=== PATIENT | male | born 1950 | race Caucasian/White ===

== ENCOUNTER 2017-11-10 14:53 | Inpatient (IN) | payer OTHER ==
[~2017-11-10] VITALS: Ht 182.9 cm; Wt 89.5 kg
--- NOTE | ~2017-11-10 | HC ---
[facility] [place] [address] CONSULTATION Name: JADENYOBANY Room #: 406-P [facility] IN M.R.#: [id number] Admission: 11/10/17 Attend Phys: Rambo Chua MD Discharge: 11/14/17 Date of : 52 Report #: [id number] THIS REPORT FOR: //name// CC: Rambo Chua [facility] CHIEF COMPLAINT: Oliguria. HISTORY OF PRESENT ILLNESS: The patient is a 67-year-old gentleman who is being seen in the Emergency Room at the request of Dr. Chua for evaluation and management of possible urinary retention. Specifically, he lives at [facility] and was noted to have no urine output during the course of the day today. There is a history in the chart of kidney injury in the past. He is disoriented and does not answer questions, has a history of subarachnoid hemorrhage and traumatic brain injury. ALLERGIES: None reported. MEDICATIONS: Zoloft 25 mg daily, Depakote 750 mg at bedtime, Synthroid 75 mcg daily, lisinopril 20 mg daily, Zyprexa 2.5 mg at bedtime, Lipitor 40 mg at bedtime, vitamin D 1000 units daily, Catapres 0.1 mg b.i.d. ILLNESSES: Include subarachnoid hemorrhage, hypothyroidism, traumatic brain injury, elevated cholesterol, history of rhabdomyolysis, amnesia, altered mental status, and pulmonary nodule. REVIEW OF SYSTEMS: Not obtainable. SOCIAL HISTORY: Minimal tobacco use and no alcohol use. PHYSICAL EXAMINATION: GENERAL: He is awake, lying in bed. VITAL SIGNS: Blood pressure 116/53, pulse 82, respirations 18, temperature is 36.7. NEUROLOGIC: He is disoriented will not consent for exam. LABORATORY DATA: He is also combative. Nurses attempted to place a catheter, but could not keep him still. White count is 8.4000, hemoglobin 10.6, hematocrit 31.5, platelets 469,000. Sodium 141, potassium 4.1, chloride 107, CO2 of 26, BUN 46, creatinine is 1.5, GFR is 47, calcium is 11.0. AST 43, alkaline phosphatase 214, albumin 2.7. IMPRESSION: Dehydration/oliguria. PLAN: 1. Recommend hydration. 2. Monitor urine output and postvoid residuals. [address] [address] CONSULTATION Name: YOBANY STANLEY Room #: 406-P [facility] IN M.R.#: [id number] Admission: 11/10/17 Attend Phys: Rambo Chua MD Discharge: 11/14/17 Date of : 52 Report #: [id number] 3. He does not begin urinating and needs Yanez catheter placed and he will need to be taken to surgery. He has eaten and he has had food in the ER and has not been n.p.o. and at this point, I feel he deserves a period of hydration and observation before taking him to surgery given his mental status and the fact that he is in no way cooperative and would require emergency anesthesia techniques given the fact that he had food in the Emergency Room. I discussed this in detail with the ER physician, Dr. Rodriguez. <ELECTRONICALLY SIGNED> By: Mauricio Millan MD 11/21/17 [id number] Mauricio Millan MD /nt
[~2017-11-10 14:53] MED LIST: ADULT LOW DOSE81 MG; BACTRIM DS TAB1 EACH PO; LEVOTHYROXINE0.2 M1; NORCO 5-325 TA1 EACH PO; SIMVASTATIN5 MG; VITAMIN D 5050000 I1
[2017-11-10 14:54] VITALS: BP 121/61
[2017-11-10] MEDS ORDERED: ZOLOFT25 MG PO ×2 (15:23→15:25)
[2017-11-10] MEDS ORDERED: DEPAKOTE 250MG250 M1 PO (15:23)
[2017-11-10] MEDS ORDERED: SYNTHROID75 MCG PO (15:24)
[2017-11-10] MEDS ORDERED: ZYPREXA2.5 MG PO (15:24)
[2017-11-10] MEDS ORDERED: LISINOPRIL20 MG PO (15:24)
[2017-11-10] MEDS ORDERED: ATORVASTATIN CA40 MG PO (15:24)
[2017-11-10] MEDS ORDERED: VITAMIN D1000 UNI1 PO (15:25)
[2017-11-10] MEDS ORDERED: CATAPRES0.1 MG PO (15:25)
[2017-11-10 15:49] LABS: HEMATOCRIT 31.5 % (42.0-52.0); HEMOGLOBIN 10.6 gm/dL (14.0-18.0); MCH 29.7 pg (26.0-34.0); MCHC 33.7 g/dL (28.0-37.0); MCV 88.2 fL (80.0-100.0); RBC 3.57 mil/uL (4.50-6.00); RDW 13.5 % (10.5-14.5); WBC 8.4 thou/uL (4.0-11.0)
[2017-11-10 16:00] LABS: CREATININE 1.5 mg/dL (0.7-1.3); POTASSIUM 4.1 mmol/L (3.5-5.1)
[2017-11-10 16:06] LABS: ALBUMIN 2.7 g/dL (3.4-5.0); TOTAL BILIRUBIN 0.3 mg/dL (<0.1-1.0); TOTAL PROTEIN 6.8 g/dL (6.4-8.2)
[2017-11-10 17:32] VITALS: BP 116/53
[2017-11-10 19:12] VITALS: BP 99/55
[2017-11-10 19:23] VITALS: BP 116/57
[2017-11-10 19:58] VITALS: BP 126/71
[2017-11-11 16:00] VITALS: BP 118/61
[2017-11-11 20:06] VITALS: BP 164/77
[2017-11-12 00:24] LABS: URINE BILIRUBIN NEGATIVE (Negative); URINE BLOOD 2+ (Negative); URINE CLARITY CLEAR; URINE COLOR YELLOW; URINE GLUCOSE-RANDOM* NEGATIVE (Negative); URINE KETONES NEGATIVE (Negative); URINE NITRITE-REFLEX NEGATIVE (Negative); URINE PROTEIN (DIPSTICK) NEGATIVE (Negative); URINE SPECIFIC GRAVITY 1.025 (1.005-1.035); URINE UROBILINOGEN 0.2 E.U./dl (0.2-1.0)
[2017-11-12 00:28] LABS: URINE LEUKOCYTES-REFLEX 2+ (Negative)
[2017-11-12 00:36] LABS: CASTS None Seen /LPF (None Seen); MUCUS 0-3 Light strn/LPF (None Seen); SQUAMOUS 0-3 Few /LPF (0-3)
[2017-11-12 00:37] LABS: BACTERIA-REFLEX 1-9 Few /HPF (None Seen); CRYSTALS None Seen /LPF (None Seen); URINE RBC 0-2 Rare /HPF (0-2)
[2017-11-12 08:15] VITALS: BP 129/80
[2017-11-12 19:30] VITALS: BP 132/55
[2017-11-13 04:28] VITALS: BP 107/52
[2017-11-13 10:59] VITALS: BP 125/81
[2017-11-13] MEDS ORDERED: LEVAQUIN 500 M500 M1 PO (13:45)
[2017-11-13 16:18] VITALS: BP 141/82
[2017-11-13 19:43] VITALS: BP 95/59
[2017-11-14 04:32] VITALS: BP 97/60
[2017-11-14 08:00] VITALS: BP 135/79
[2017-11-14 08:41] VITALS: BP 135/79
== END 2017-11-14 12:45 | DRG 683 ==
LOC: ER 14:53 → EROBS 17:28 → 4N 17:28
PROVIDERS: Emergency Medicine
DX: N17.9 Acute kidney failure, unspecified (principal); E44.1 Mild protein-calorie malnutrition; N39.0 Urinary tract infection, site not specified; N41.9 Inflammatory disease of prostate, unspecified; R33.9 Retention of urine, unspecified; E86.0 Dehydration; G31.84 Mild cognitive impairment of uncertain or unknown etiology; E03.9 Hypothyroidism, unspecified; E78.00 Pure hypercholesterolemia, unspecified; Z85.828 Personal history of other malignant neoplasm of skin; Z87.820 Personal history of traumatic brain injury; Z68.26 Body mass index [BMI] 26.0-26.9, adult
CPT/HCPCS: 10091